=== PATIENT | female | born 1965 | race Two or more races ===

== ENCOUNTER 2018-02-20 16:55 | Inpatient (IN) | payer MEDICAID, OTHER ==
[~2018-02-20] VITALS: Ht 167.6 cm; Wt 103.9 kg
[~2018-02-20 16:55] MED LIST: AZITHROMYCIN250 MG ORAL
[2018-02-20] MEDS ORDERED: METFORMIN HCL500 M1 ORAL (17:42)
[2018-02-20] MEDS ORDERED: FREESTYLE LITE1 EAC1 MC (17:42)
[2018-02-20] MEDS ORDERED: HUMULIN 70100 UNIT/3 SQ (17:42)
[2018-02-20] MEDS ORDERED: LIPITOR10 MG ORAL (17:42)
[2018-02-20] MEDS ORDERED: QUETIAPINE FUM400 MG ORAL ×2 (17:42)
[2018-02-20] MEDS ORDERED: VITAMIN D5000 UNI2 PO (17:42)
[2018-02-20] MEDS ORDERED: RISPERDAL2 MG ORAL (17:42)
[2018-02-20] MEDS ORDERED: BENZTROPINE MESY1 MG PO (17:42)
[2018-02-20] MEDS ORDERED: DEPAKOTE ER500 MG ORAL (17:42)
[2018-02-20] MEDS ORDERED: HALOPERIDOL10 MG ORAL (17:42)
[2018-02-20] MEDS ORDERED: [UNRECOGNIZED DRUG - SUPPLY] TP (17:42)
[2018-02-20] MEDS ORDERED: LISINOPRIL10 MG ORAL (17:42)
[2018-02-20] MEDS ORDERED: Aspirin Baby 81mg ORAL ONE (18:00)
[2018-02-20 18:34] VITALS: BP 128/70
[2018-02-20 18:54] LABS: BASOPHILS % (AUTO) 1.1 % (0.0-2.0); EOSINOPHILS % (AUTO) 0.5 % (0.0-3.0); HEMATOCRIT 35.8 % (37.0-47.0); HEMOGLOBIN 12.5 G/DL (12.0-16.0); LYMPHOCYTES % (AUTO) 34.2 % (20.0-45.0); MEAN CORPUSCULAR VOLUME 89 FL (80-99); MONOCYTES % (AUTO) 7.2 % (1.0-10.0); PLATELET COUNT 219 K/UL (150-450); RED BLOOD COUNT 4.01 M/UL (4.20-5.40); RED CELL DISTRIBUTION WIDTH 11.4 % (11.6-14.8); WHITE BLOOD COUNT 12.4 K/UL (4.8-10.8)
--- NOTE | 2018-02-20 18:54 | Emergency Room Report ---
History of Present Illness General Chief Complaint: Dyspnea/Respdistress Source: Patient, Medical Record Present Illness HPI Patient presents emergency department today complaining of acute onset shortness breath and chest pain for one day. Patient denies any leg pain leg swelling. She is not very good historian is unable to characterize her pain very well. The pain is described however as retrosternal nonradiating associated shortness of breath. She states that she had had it before but she is uncertain if it's actually exertional. She denies any fever cough runny nose or sore throat. No other complete were noted. Symptoms noted to be severe. Patient denies any leg pain leg swelling. Patient denies having a recent stress test. She does state that she has history of psychiatric disorder but denies any suicidal homicidal ideations. No auditory or visual hallucinations.No other modifying factors. No other associated signs and symptoms. No other complaints were noted. Allergies: Coded Allergies: SULFAMETHOXAZOLE (Verified Allergy, Unknown, 02/20/18) TRIMETHOPRIM (Verified Allergy, Unknown, 02/20/18) Patient History Past Medical History: DM, HTN, psych hx - schizophrenia Social History: Reports: smoking; Denies: alcohol use, drug use Reviewed Nursing Documentation: PMH: Agreed; PSxH: Agreed Nursing Documentation-PMH Hx Hypertension: Yes Hx Diabetes: Yes History Of Psychiatric Problem: Yes - SCHIZOPHRENIA Review of Systems All Other Systems: negative except mentioned in HPI Physical Exam Vital Signs Date Time Temp Pulse Resp B/P (MAP) Pulse Ox O2 Delivery O2 Flow Rate FiO2 02/20/18 17:04 97.8 93 16 122/70 95 Room Air 97.9 Sp02 EP Interpretation: reviewed, normal General Appearance: normal inspection, well appearing, no apparent distress, alert Head: atraumatic Eyes: bilateral eye normal inspection ENT: normal ENT inspection, hearing grossly normal, normal voice Neck: normal inspection, full range of motion, supple, no bony tend Respiratory: normal inspection, lungs clear, normal breath sounds, no respiratory distress, no retraction, no wheezing Cardiovascular #1: regular rate, rhythm, no edema Gastrointestinal: normal inspection, normal bowel sounds, non tender, soft, no guarding, no hernia Genitourinary: no CVA tenderness Musculoskeletal: normal inspection, back normal, normal range of motion Neurologic: normal inspection, alert, responsive, speech normal Psychiatric: normal inspection, judgement/insight normal, mood/affect normal Skin: normal inspection, normal color, no rash Medical Decision Making Diagnostic Impression: Primary Impression: ACS (acute coronary syndrome) Additional Impression: Dyspnea ER Course Patient presented to the emergency department today complaining of chest pain. Differential diagnoses include acute coronary syndrome, pulmonary embolism, pneumothorax, chest wall pain, pleurisy, pericarditis, acute anxiety reaction just to name a few. Given the severity of the patient's presentation I felt this is a highly complex patient. This patient required extensive workup. CBC , chemistry, EKG, chest x-ray, cardiac enzymes, liver profile were all obtained. 12-lead EKG performed for nontraumatic chest pain. PQRS documentation: EKG was performed. Please refer to below for interpretation. Patient's workup was negative but given patient's poor historian and diabetic risk factors with no prior stress test I felt the patient likely require admission. Case discussed with Dr. Linda ray [facility]. Patient is capitated to [facility] and will be transferred once a bed is available. Labs Test 02/20/18 18:24 02/20/18 18:25 White Blood Count 12.4 K/UL (4.8-10.8) Red Blood Count 4.01 M/UL (4.20-5.40) Hemoglobin 12.5 G/DL (12.0-16.0) Hematocrit 35.8 % (37.0-47.0) Mean Corpuscular Volume 89 FL (80-99) Mean Corpuscular Hemoglobin 31.2 PG (27.0-31.0) Mean Corpuscular Hemoglobin Concent 35.0 G/DL (32.0-36.0) Red Cell Distribution Width 11.4 % (11.6-14.8) Platelet Count 219 K/UL (150-450) Mean Platelet Volume 6.2 FL (6.5-10.1) Neutrophils (%) (Auto) 57.0 % (45.0-75.0) Lymphocytes (%) (Auto) 34.2 % (20.0-45.0) Monocytes (%) (Auto) 7.2 % (1.0-10.0) Eosinophils (%) (Auto) 0.5 % (0.0-3.0) Basophils (%) (Auto) 1.1 % (0.0-2.0) Sodium Level 140 MMOL/L (136-145) Potassium Level 4.7 MMOL/L (3.5-5.1) Chloride Level 105 MMOL/L (98-107) Carbon Dioxide Level 25 MMOL/L (21-32) Anion Gap 10 mmol/L (5-15) Blood Urea Nitrogen 22 mg/dL (7-18) Creatinine 1.0 MG/DL (0.55-1.30) Estimat Glomerular Filtration Rate 58.0 mL/min (>60) Glucose Level 115 MG/DL (74-106) Calcium Level 9.1 MG/DL (8.5-10.1) Total Bilirubin 0.2 MG/DL (0.2-1.0) Aspartate Amino Transf (AST/SGOT) 11 U/L (15-37) Alanine Aminotransferase (ALT/SGPT) 15 U/L (12-78) Alkaline Phosphatase 76 U/L (46-116) Total Creatine Kinase 89 U/L (26-308) Creatine Kinase MB 1.8 NG/ML (0.0-3.6) Creatine Kinase MB Relative Index 2.0 Troponin I 0.002 ng/mL (0.000-0.056) Pro-B-Type Natriuretic Peptide 74 pg/mL (0-125) Total Protein 7.4 G/DL (6.4-8.2) Albumin 3.4 G/DL (3.4-5.0) Globulin 4.0 g/dL Albumin/Globulin Ratio 0.9 (1.0-2.7) EKG Diagnostic Results Rate: normal Rhythm: NSR ST Segments: no acute changes Rhythm Strip Diag. Results EP Interpretation: yes Rate: 83 Rhythm: NSR, no PVC's, no ectopy Chest X-Ray Diagnostic Results Chest X-Ray Diagnostic Results : Chest X-Ray Ordered: Yes # of Views/Limited/Complete: 1 View Indication: Chest Pain EP Interpretation: Yes Interpretation: no consolidation, no effusion, no pneumothorax, no acute cardiopulmonary disease Impression: No acute disease Electronically Signed by: Dr. Rosetta Burton M.D. Last Vital Signs Date Time Temp Pulse Resp B/P (MAP) Pulse Ox O2 Delivery O2 Flow Rate FiO2 02/20/18 18:34 97.5 79 16 128/70 96 Room Air 97.5 Status: improved Disposition: XFER SHT-TRM HOSP Condition: Serious Referrals: NOT CHOSEN [facility]/,REFERRING (PCP) ROSETTA BURTON M.D. Feb 20, 2018 18:54
[2018-02-20 19:26] LABS: ALANINE AMINOTRANSFERASE 15 U/L (12-78); ALBUMIN 3.4 G/DL (3.4-5.0); ALBUMIN/GLOBULIN RATIO 0.9 (1.0-2.7); ALKALINE PHOSPHATASE 76 U/L (46-116); ANION GAP 10 mmol/L (5-15); ASPARTATE AMINO TRANSFERASE 11 U/L (15-37); BILIRUBIN,TOTAL 0.2 MG/DL (0.2-1.0); BLOOD UREA NITROGEN 22 mg/dL (7-18); CALCIUM 9.1 MG/DL (8.5-10.1); CARBON DIOXIDE 25 MMOL/L (21-32); CHLORIDE 105 MMOL/L (98-107); CKMB 1.8 NG/ML (0.0-3.6); CREATINE KINASE 89 U/L (26-308); POTASSIUM 4.7 MMOL/L (3.5-5.1); SODIUM 140 MMOL/L (136-145)
[2018-02-20 20:20] VITALS: BP 125/70
[2018-02-20 23:20] VITALS: BP 133/68
[2018-02-21] MEDS ORDERED: Vitamin D 1000 IU Tab ORAL SCH (01:45)
[2018-02-21 04:00] VITALS: BP 110/51
[2018-02-21] MEDS ORDERED: Insulin NPH SUBQ SCH (06:30)
[2018-02-21] MEDS: NovoLOG Insulin Flexpen SUBQ SCH ×2 (06:30→11:58)
[2018-02-21 08:00] VITALS: BP 135/79
[2018-02-21] MEDS: Benztropine 1mg tab ORAL SCH ×2 (08:34→12:13)
[2018-02-21] MEDS ORDERED: Depakote ER 500mg tab ORAL SCH (09:00)
[2018-02-21] MEDS ORDERED: QUEtiapine 200mg tab ORAL SCH (09:00)
[2018-02-21] MEDS ORDERED: Lisinopril 10mg tab ORAL SCH (09:00)
[2018-02-21] MEDS ORDERED: metFORMIN 500mg tab ORAL SCH (09:00)
--- NOTE | 2018-02-21 09:26 | Diagnostic Imaging Report ---
Indication: Chest pain Technique: XRAY Chest 1v Comparison: None Findings: Cardiomediastinal silhouette is within normal limits. There is mild atelectasis in the right base. There is no pneumothorax or pleural effusion. Degenerative changes of the spine are seen. Impression: Mild atelectasis in the right base. Otherwise no acute cardiopulmonary disease.
[2018-02-21 12:00] VITALS: BP 138/75
--- NOTE | 2018-02-21 17:45 | History and Physical Report ---
DATE OF ADMISSION: 02/20/2018 HISTORY OF PRESENT ILLNESS: This is a very pleasant, 52-year-old female with a history of schizophrenia. She came to the [facility] last night with complaints of chest pain. The patient is a very poor historian. She reports shortness of breath as well. The patient is a smoker. The patient denies any history of asthma or COPD. She denies any previous cardiac history. She is not hypertensive or diabetic. The patient lives in a [facility] facility. The patient states that she started having some midsternal discomfort and shortness of breath. This resolved spontaneously. Overnight, she has undergone a troponin which was negative. EKG is normal sinus rhythm. X-ray chest has been reportedly negative as well. PAST MEDICAL HISTORY: Notable for diabetes mellitus, hypertension, and schizophrenia. ALLERGIES: To sulfamethoxazole and trimethoprim. FAMILY HISTORY: Noncontributory. SOCIAL HISTORY: Lives at a [facility] facility. Admits to tobacco use. Denies alcohol use. PHYSICAL EXAMINATION: GENERAL: Examination reveals a 52-year-old female. VITAL SIGNS: Blood pressure 120/70, heart rate 94, respirations , afebrile. HEENT: Unremarkable. CHEST: Clear breath sounds bilaterally. ABDOMEN: Soft. EXTREMITIES: There is no edema. NEUROLOGIC: Nonfocal. LABORATORY AND DIAGNOSTIC DATA: Lab testing shows negative EKG. X-ray of chest per ER report is negative. Lab testing is normal except white count 12,000, hemoglobin of 12, and platelet count is 219,000. Chemistries are normal. Troponin is negative x1. IMPRESSION: 1. Atypical chest pain. 2. Negative troponin. 3. Smoker. 4. Schizophrenia. 5. Diabetes mellitus. 6. Hypertension. DISCUSSION: The patient at this time is pain free. Her first troponin is negative. Second troponin is pending. EKG is within normal limits. She is pain-free at this time. My suspicion for acute coronary syndrome is low given negative troponins. The patient is keen on going home. We will arrange discharge to [facility]. The patient may require transportation, but also recommend outpatient followup with Cardiology for stress testing. Jeremiah Carlisle M.D. DR: GEN JOB#: [id number] CC:
--- NOTE | 2018-02-23 17:20 | Discharge Summary ---
Discharge Summary Discharge Summary Discharge Summary DATE OF ADMISSION: 02/20/2018 DATE OF DISCHARGE: 02/21/2018 BRIEF HOSPITAL COURSE: Patient is a 52-year-old female, with history of schizophrenia, came to the hospital with complaints of chest pain. Patient is a poor historian. She also complained of shortness of breath. She is a current smoker denied any history of asthma or COPD, denied previous cardiac history, denied hypertension or diabetes. On evaluation at ED, EKG was in normal sinus rhythm with no acute changes. Chest x-ray showed no acute cardiopulmonary disease. Initial troponin was 0.002. She was then transferred to [facility], she was eventually admitted to telemetry for evaluation of acute coronary syndrome. Cardiac troponins were monitored and had been negative. She was given Lipitor lisinopril and aspirin. She was continued on metformin and was placed on insulin sliding scale. Chest pain resolve spontaneously she was eventually discharged back to board and care. FINAL DIAGNOSES: Atypical chest pain Negative troponin Smoker Schizophrenia Diabetes mellitus Hypertension DISPOSITION: Patient was discharged back to assisted living. DISCHARGE MEDICATIONS: Refer to Discharge Medication List. DISCHARGE INSTRUCTIONS: Follow up with PCP in a week. Follow-up with cardiology for stress testing I have been assigned to dictate discharge summary on this account, and I was not involved in the patient's management. Mell Bryan NP Feb 23, 2018 17:20
== END 2018-02-21 13:05 | disposition home or self-care (01) | DRG 203 ==
LOC: EMR 18:29 → 2E 22:22 → EDBEDREQ 22:54
DX: R07.89 Other chest pain (principal); F20.9 Schizophrenia, unspecified; I10 Essential (primary) hypertension; E11.9 Type 2 diabetes mellitus without complications; F17.200 Nicotine dependence, unspecified, uncomplicated; Z88.1 Allergy status to other antibiotic agents; Z88.2 Allergy status to sulfonamides
CPT/HCPCS: 36415; 71045; 80053; 82550; 82553; 82962; 83880; 84484; 85025; 87081; 93005; 99285; J1815

== ENCOUNTER 2018-05-22 18:25 | Emergency (ER) | payer MEDICAID, OTHER ==
[~2018-05-22] VITALS: Ht 170.2 cm; Wt 105.2 kg
[~2018-05-22 18:25] MED LIST changes: +BENZTROPINE MESY1 MG PO; +DEPAKOTE ER500 MG ORAL; +FREESTYLE LITE1 EAC1 MC; +HALOPERIDOL10 MG ORAL; +HUMULIN 70100 UNIT/3 SQ; +LIPITOR10 MG ORAL; +LISINOPRIL10 MG ORAL; +METFORMIN HCL500 M1 ORAL; +QUETIAPINE FUM400 MG ORAL; +RISPERDAL2 MG ORAL; +VITAMIN D5000 UNI2 PO; +[UNRECOGNIZED DRUG - SUPPLY] TP
[2018-05-22 18:40] VITALS: BP 145/70
[2018-05-22] MEDS ORDERED: LORAZEPAM1 MG ORAL (18:55)
[2018-05-22] MEDS ORDERED: PROMETHAZINE DM PO (18:57)
[2018-05-22] MEDS ORDERED: IBUPROFEN600 MG ORAL (18:57)
[2018-05-22 19:30] LABS: BASOPHILS % (AUTO) 0.6 % (0.0-2.0); EOSINOPHILS % (AUTO) 0.8 % (0.0-3.0); HEMATOCRIT 37.7 % (37.0-47.0); HEMOGLOBIN 12.8 G/DL (12.0-16.0); LYMPHOCYTES % (AUTO) 31.1 % (20.0-45.0); MEAN CORPUSCULAR VOLUME 88 FL (80-99); MONOCYTES % (AUTO) 6.3 % (1.0-10.0); NEUTROPHILS % (AUTO) 61.2 % (45.0-75.0); PLATELET COUNT 264 K/UL (150-450); RED BLOOD COUNT 4.27 M/UL (4.20-5.40); RED CELL DISTRIBUTION WIDTH 12.3 % (11.6-14.8); WHITE BLOOD COUNT 12.8 K/UL (4.8-10.8)
[2018-05-22 19:35] LABS: INR 0.9 (0.9-1.1)
[2018-05-22 19:42] LABS: ANION GAP 10 mmol/L (5-15); BLOOD UREA NITROGEN 16 mg/dL (7-18); CALCIUM 8.8 MG/DL (8.5-10.1); CARBON DIOXIDE 27 MMOL/L (21-32); CHLORIDE 102 MMOL/L (98-107); CREATININE 1.3 MG/DL (0.55-1.30); POTASSIUM 3.9 MMOL/L (3.5-5.1); SODIUM 139 MMOL/L (136-145)
[2018-05-22 19:47] LABS: ALANINE AMINOTRANSFERASE 17 U/L (12-78); ALBUMIN 3.4 G/DL (3.4-5.0); ALBUMIN/GLOBULIN RATIO 0.9 (1.0-2.7); ALKALINE PHOSPHATASE 79 U/L (46-116); ASPARTATE AMINO TRANSFERASE 8 U/L (15-37); BILIRUBIN,TOTAL 0.2 MG/DL (0.2-1.0); CREATINE KINASE 70 U/L (26-308)
[2018-05-22] MEDS ORDERED: valACYclovir HCL 500mg tab ORAL ONE (21:00)
--- NOTE | 2018-05-22 21:48 | Emergency Room Report ---
History of Present Illness General Chief Complaint: General Complaint Source: Patient Present Illness HPI L facial weakness 2 days. Denies numbness. Told to come to ED. No POWELL, trauma, dizziness, ear pain, neck pain. + anxiety Diabetic with glucose allegedly slightly out of control Possible non-compliance with psych and other meds. No chest pain, palpitations, NVD, dysuria. No SI or HI. No rashes, back pain, extremity pain. No blood thinners, oncologic problems. Allergies: Coded Allergies: SULFAMETHOXAZOLE (Verified Allergy, Unknown, 02/20/18) TRIMETHOPRIM (Verified Allergy, Unknown, 02/20/18) Patient History Past Medical History: see triage record Social History: Reports: smoking; Denies: alcohol use, drug use Social History Narrative [facility] Reviewed Nursing Documentation: PMH: Agreed; PSxH: Agreed Nursing Documentation-PMH Hx Cardiac Problems: Yes Hx Hypertension: Yes Hx Diabetes: Yes Hx Cancer: No Hx Gastrointestinal Problems: No History Of Psychiatric Problem: Yes - BIPOLAR,SCHIZO Hx Neurological Problems: No Review of Systems All Other Systems: negative except mentioned in HPI Physical Exam Vital Signs Date Time Temp Pulse Resp B/P (MAP) Pulse Ox O2 Delivery O2 Flow Rate FiO2 05/22/18 18:32 98.6 98 16 145/70 95 Room Air 98.6 Sp02 EP Interpretation: reviewed, normal General Appearance: well appearing, no apparent distress, GCS 15 Head: normocephalic, atraumatic Eyes: left eye other - lid lag L, min elevatoin of L eyebrow and no brow furrowing L; bilateral eye PERRL ENT: hearing grossly normal, TMs + canals normal, moist mucus membranes, other - NL fold less L and assymmetric smile L - no mastoid tenderness Neck: supple Respiratory: lungs clear, normal breath sounds Cardiovascular #1: regular rate, rhythm Cardiovascular #2: 2+ radial (R) Gastrointestinal: normal inspection, normal bowel sounds, non tender, no mass, non-distended Musculoskeletal: back normal, gait/station normal, normal range of motion Neurologic: alert, oriented x3, DTRs symmetric, sensory intact, cerebellar normal, normal gait, speech normal, motor weakness - L facial Psychiatric: anxious Skin: normal inspection, warm/dry Medical Decision Making Diagnostic Impression: Primary Impression: Pitts's palsy Additional Impressions: Leukocytosis Qualified Codes: D72.829 - Elevated white blood cell count, unspecified Pyuria ER Course Patient with 2 days of L facial weakness. Based on exam, CT not indicated. DDX : nerve palsy related to diabetes, mononeuritis related to diabetes, Pitts's Palsy. CVA excluded by exam - only motor branch of facial nerve involved. Evaluation with labs. Treatment with steroids and consideration for anti- herpes meds. Labs with min elevated WBC, renal insufficiency, elevated glucose. EKG no injury. Not give urine. Discussed dx with patient and need for follow up with ENT/neuro. Patient stable for outpatient observation and treatment. UA return after d/c. Transmit Rx for macrobid. 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 Laboratory Tests Test 05/22/18 19:05 05/22/18 22:50 White Blood Count 12.8 K/UL (4.8-10.8) H Red Blood Count 4.27 M/UL (4.20-5.40) Hemoglobin 12.8 G/DL (12.0-16.0) Hematocrit 37.7 % (37.0-47.0) Mean Corpuscular Volume 88 FL (80-99) Mean Corpuscular Hemoglobin 30.0 PG (27.0-31.0) Mean Corpuscular Hemoglobin Concent 33.9 G/DL (32.0-36.0) Red Cell Distribution Width 12.3 % (11.6-14.8) Platelet Count 264 K/UL (150-450) Mean Platelet Volume 6.8 FL (6.5-10.1) Neutrophils (%) (Auto) 61.2 % (45.0-75.0) Lymphocytes (%) (Auto) 31.1 % (20.0-45.0) Monocytes (%) (Auto) 6.3 % (1.0-10.0) Eosinophils (%) (Auto) 0.8 % (0.0-3.0) Basophils (%) (Auto) 0.6 % (0.0-2.0) Prothrombin Time 10.0 SEC (9.30-11.50) Prothrombin Time INR 0.9 (0.9-1.1) PTT 26 SEC (23-33) Sodium Level 139 MMOL/L (136-145) Potassium Level 3.9 MMOL/L (3.5-5.1) Chloride Level 102 MMOL/L (98-107) Carbon Dioxide Level 27 MMOL/L (21-32) Anion Gap 10 mmol/L (5-15) Blood Urea Nitrogen 16 mg/dL (7-18) Creatinine 1.3 MG/DL (0.55-1.30) Estimate Glomerular Filtration Rate 42.8 mL/min (>60) Glucose Level 213 MG/DL (74-106) H Calcium Level 8.8 MG/DL (8.5-10.1) Total Bilirubin 0.2 MG/DL (0.2-1.0) Aspartate Amino Transferase (AST) 8 U/L (15-37) L Alanine Aminotransferase (ALT) 17 U/L (12-78) Alkaline Phosphatase 79 U/L (46-116) Total Creatine Kinase 70 U/L (26-308) Troponin I 0.000 ng/mL (0.000-0.056) Total Protein 7.4 G/DL (6.4-8.2) Albumin 3.4 G/DL (3.4-5.0) Globulin 4.0 g/dL Albumin/Globulin Ratio 0.9 (1.0-2.7) L Urine Color Pale yellow Urine Appearance Slightly cloudy Urine pH 6.5 (4.5-8.0) Urine Specific [place] 1.010 (1.005-1.035) Urine Protein 1+ (NEGATIVE) H Urine Glucose (UA) 1+ (NEGATIVE) H Urine Ketones 1+ (NEGATIVE) H Urine Occult Blood Negative (NEGATIVE) Urine Nitrite Negative (NEGATIVE) Urine Bilirubin Negative (NEGATIVE) Urine Urobilinogen Normal MG/DL (0.0-1.0) Urine Leukocyte Esterase 2+ (NEGATIVE) H Urine RBC 0 /HPF (0 - 2) Urine WBC 5-10 /HPF (0 - 2) H Urine Squamous Epithelial Cells Moderate /LPF (NONE/OCC) H Urine Bacteria Few /HPF (NONE) EKG Diagnostic Results Rate: normal Rhythm: NSR Rhythm Strip Diag. Results EP Interpretation: yes Rhythm: NSR, no PVC's, no ectopy Last Vital Signs Date Time Temp Pulse Resp B/P (MAP) Pulse Ox O2 Delivery O2 Flow Rate FiO2 05/22/18 23:10 98.6 90 16 153/68 96 Room Air 98.6 Status: improved Disposition: HOME, SELF-CARE Condition: Improved Scripts Nitrofurantoin Monohyd/M-Cryst* (MACROBID 100 MG*) 100 Mg Capsule 100 MG ORAL EVERY 12 HOURS, #14 CAP Prov: Donald Loco M.D. 05/23/18 Valacyclovir Hcl* (VALTREX*) 500 Mg Tablet 1000 MG ORAL TID, #20 TAB Prov: Donald Loco M.D. 05/22/18 Prednisone (PREDNISONE) 10 Mg Tab.ds.pk 10 MG PO as directed for , #22 PACK 4 po QD X 2, 3 po QD X 2, 2 po QD X 2, 1 po QD X 4 Prov: Donald Loco M.D. 05/22/18 Referrals: [facility],REFERRING (PCP) Donald Loco M.D. May 22, 2018 21:47
[2018-05-22] MEDS ORDERED: PREDNISONE10 M2 PO (22:47)
[2018-05-22] MEDS ORDERED: VALACYCLOVIR500 MG ORAL (22:47)
[2018-05-22 23:08] LABS: APPEARANCE,URINE SLIGHTLY CLOUDY; BILIRUBIN, URINE NEGATIVE (NEGATIVE); COLOR,URINE PALE YELLOW; GLUCOSE, URINE (UA) 1+ (NEGATIVE); KETONES,URINE 1+ (NEGATIVE); LEUKOCYTE ESTERASE ,URINE 2+ (NEGATIVE); NITRITE,URINE NEGATIVE (NEGATIVE); PH,URINE 6.5 (4.5-8.0); PROTEIN,URINE 1+ (NEGATIVE); UROBILINOGEN,URINE NORMAL MG/DL (0.0-1.0)
[2018-05-22 23:10] VITALS: BP 153/68
[2018-05-23] MEDS ORDERED: NITROFURANTOIN100 M2 ORAL (02:51)
== END 2018-05-22 23:10 | disposition home or self-care (01) ==
LOC: EMR 18:47
DX: G51.0 Bell's palsy (principal); D72.829 Elevated white blood cell count, unspecified; N39.0 Urinary tract infection, site not specified; E11.9 Type 2 diabetes mellitus without complications; I10 Essential (primary) hypertension; Z88.2 Allergy status to sulfonamides
CPT/HCPCS: 36415; 80053; 81003; 82550; 84484; 85025; 85610; 85730; 93005; 99284; J7512

== ENCOUNTER 2018-08-20 01:44 | Emergency (ER) | payer MEDICAID ==
[~2018-08-20] VITALS: Ht 167.6 cm; Wt 108.0 kg
[~2018-08-20 01:44] MED LIST changes: +IBUPROFEN600 MG ORAL; +LORAZEPAM1 MG ORAL; +NITROFURANTOIN100 M2 ORAL; +PREDNISONE10 M2 PO; +PROMETHAZINE DM PO; +VALACYCLOVIR500 MG ORAL
[2018-08-20 01:54] VITALS: BP 111/70
--- NOTE | 2018-08-20 02:45 | Emergency Room Report ---
History of Present Illness General Chief Complaint: General Complaint Source: Patient Present Illness HPI Is a 53-year-old female with a psychiatric history. She presents with chief complaint of shortness of breath. She was sleeping and woke up and said she heard a noise. That said she felt shortness of breath and could not fall back asleep. She called 911. She said she was scared. Fell better now. More comfortable here. No fever chills but no nausea no vomiting. No chest pain. Shortness of breath resolved. Allergies: Coded Allergies: SULFAMETHOXAZOLE (Verified Allergy, Unknown, 02/20/18) TRIMETHOPRIM (Verified Allergy, Unknown, 02/20/18) Patient History Past Medical History: see triage record, old chart reviewed, psych hx Past Surgical History: other Pertinent Family History: none Social History: Denies: smoking Now: No Immunizations: other Reviewed Nursing Documentation: PMH: Agreed; PSxH: Agreed Nursing Documentation-PMH Hx Cardiac Problems: Yes Hx Hypertension: Yes Hx Diabetes: Yes Hx Cancer: No Hx Gastrointestinal Problems: No History Of Psychiatric Problem: Yes - schizo Hx Neurological Problems: No Review of Systems Eye: Denies: eye pain, blurred vision ENT: Denies: ear pain, nose congestion, throat swelling Respiratory: Reports: shortness of breath; Denies: cough Cardiovascular: Denies: chest pain, palpitations Gastrointestinal: Denies: abdominal pain, diarrhea, nausea, vomiting Musculoskeletal: Denies: back pain, joint pain Skin: Denies: rash Neurological: Denies: headache, numbness Endocrine: Denies: increased thirst, increased urine Hematologic/Lymphatic: Denies: easy bruising All Other Systems: negative except mentioned in HPI Physical Exam Vital Signs Date Time Temp Pulse Resp B/P (MAP) Pulse Ox O2 Delivery O2 Flow Rate FiO2 08/20/18 01:44 97.4 98 16 109/66 99 Room Air 97.3 vitals normal Sp02 EP Interpretation: reviewed, normal General Appearance: well appearing, no apparent distress, alert, obese Head: normocephalic, atraumatic Eyes: bilateral eye PERRL, bilateral eye EOMI ENT: hearing grossly normal, normal pharynx Neck: full range of motion, supple, no meningismus Respiratory: chest non-tender, lungs clear, normal breath sounds Cardiovascular #1: regular rate, rhythm, no murmur Gastrointestinal: normal bowel sounds, non tender, no mass, no organomegaly, no bruit, non-distended Musculoskeletal: back normal, gait/station normal, normal range of motion Psychiatric: mood/affect normal Skin: warm/dry Medical Decision Making Diagnostic Impression: Primary Impression: Dyspnea Qualified Codes: R06.00 - Dyspnea, unspecified ER Course Patient with dyspnea. This may be anxiety related. Could be sleep apnea secondary to hold obesity and obstructive sleep apnea. She sleeping comfortably here. She ate and drink before going back to sleep. We'll transfer back to assisted. Last Vital Signs Date Time Temp Pulse Resp B/P (MAP) Pulse Ox O2 Delivery O2 Flow Rate FiO2 08/20/18 01:54 98.1 80 16 111/70 99 Room Air 98.1 Status: improved Disposition: HOME, SELF-CARE Condition: Stable Referrals: [facility],REFERRING (PCP) Additional Instructions: Follow-up with your doctor in 7 days. Return if symptom worsen. Jose Kaplan MD Aug 20, 2018 02:45
[2018-08-20 04:04] VITALS: BP 123/69
[2018-08-20 05:16] VITALS: BP 130/76
[2018-08-20 05:17] VITALS: BP 123/69
== END 2018-08-20 05:21 | disposition home or self-care (01) ==
LOC: EDBD 01:44 → EMR 02:23
DX: R06.00 Dyspnea, unspecified (principal); I10 Essential (primary) hypertension; E11.9 Type 2 diabetes mellitus without complications; F20.9 Schizophrenia, unspecified; Z88.2 Allergy status to sulfonamides
CPT/HCPCS: 99283